=== PATIENT | female | born 1960 | race Caucasian/White ===

== ENCOUNTER → 2017-06-01 | Outpatient (CLI) | payer BC, OTHER ==
[~2017-06-01] MED LIST: ESTR1TAB66; NAPR-243 PO; TRM50T PO
--- NOTE | 2017-06-01 11:30 | Diagnostic Imaging Report ---
INDICATION: Screening mammogram. COMPARISON: 02/20/2016. TECHNIQUE: Digital screening mammography was obtained with CAD and 3D tomosynthesis. FINDINGS: Scattered fibroglandular densities are present. There is no mass or suspicious calcification. IMPRESSION: Stable screening mammogram. No malignancy. ACR BI-RADS Category 1: Negative. Result letter will be mailed to the patient. Note: At least 10% of breast cancer is not imaged by mammography. Dictated by: Dictated on workstation # [id number]
== END ==
LOC: RAD 07:28
PROVIDERS: ATTEND Obstetrics & Gynecology
DX: Z12.31 Encounter for screening mammogram for malignant neoplasm of breast (principal)
CPT/HCPCS: 77067

== ENCOUNTER 2018-05-26 05:46 | Outpatient (CLI) | payer OTHER ==
[~2018-05-26] VITALS: Ht 177.8 cm; Wt 63.5 kg
[2018-05-26] MEDS ORDERED: CETI10TA20 PO (14:33)
[2018-05-26] MEDS ORDERED: ETOD400T PO (14:33)
[2018-05-26] MEDS ORDERED: ESTR1TAB24 PO (14:33)
== END 2018-05-26 14:39 | disposition home or self-care (01) ==
LOC: PREOP 05:46
PROVIDERS: ATTEND Surgery
DX: Z01.818 Encounter for other preprocedural examination (principal)

== ENCOUNTER → 2018-06-21 | Outpatient (CLI) | payer OTHER ==
[~2018-06-21] MED LIST changes: +CETI10TA20 PO; +ESTR1TAB24 PO; +ETOD400T PO
--- NOTE | 2018-06-21 17:41 | Diagnostic Imaging Report ---
INDICATION: Routine screening. Comparison is made with prior mammograms from 06/01/2017 and 02/20/2016. 2-D and 3-D bilateral screening mammography was performed with CAD. The current study was also evaluated with a Computer Aided Detection (CAD) system. FINDINGS: Both breasts are heterogeneously dense, limiting the sensitivity of mammography. The parenchymal pattern is stable. No mass or malignant-appearing microcalcifications are seen. The axillae are unremarkable. IMPRESSION: No mammographic features suspicious for malignancy are identified. ACR BI-RADS Category 1: Negative. Result letter will be mailed to the patient. Note: At least 10% of breast cancer is not imaged by mammography. Dictated by: Dictated on workstation # [id number]
== END ==
LOC: RAD 07:31
PROVIDERS: ATTEND Obstetrics & Gynecology
DX: Z12.31 Encounter for screening mammogram for malignant neoplasm of breast (principal)
CPT/HCPCS: 77067

== ENCOUNTER → 2019-04-26 | Outpatient (CLI) | payer OTHER ==
--- NOTE | 2019-04-26 10:47 | Diagnostic Imaging Report ---
PROCEDURE: CT sinuses without contrast TECHNIQUE: Multiple contiguous axial images were obtained through the sinuses without the use of intravenous contrast. Coronal and sagittal reformations were then performed. Auto Exposure Controls were utilized during the CT exam to meet ALARA standards for radiation dose reduction. INDICATION: Chronic sinusitis, difficulty breathing COMPARISON: There are no prior studies available for comparison FINDINGS: The patient has had a prior bilateral maxillary antrostomy procedure. The sinuses are generally clear. There is no significant mucosal thickening or fluid layering to suggest active disease. Osseous structures are intact. The orbits are symmetrical and within normal limits. The intracranial contents where visualized are unremarkable. IMPRESSION: 1. There is no evidence for active sinus disease. 2. There has been a prior bilateral maxillary antrostomy procedure. Dictated by: Dictated on workstation # [id number]
== END ==
LOC: RAD 07:28
PROVIDERS: ATTEND Otolaryngology Otolaryngology/Facial Plastic Surgery
DX: J32.9 Chronic sinusitis, unspecified (principal); Z98.890 Other specified postprocedural states
CPT/HCPCS: 70486

== ENCOUNTER → 2019-07-07 | Outpatient (CLI) | payer BC, OTHER ==
--- NOTE | 2019-07-07 09:02 | Diagnostic Imaging Report ---
INDICATION: Routine screening. Comparison is made with prior mammogram from 06/21/2018 and 06/01/2017. 2-D and 3-D bilateral screening mammography was performed with CAD. The current study was also evaluated with a Computer Aided Detection (CAD) system. 3-D tomosynthesis was also performed and reviewed. Both breasts remain heterogeneously dense, limiting the sensitivity of mammography. The parenchymal pattern is stable. No mass or malignant appearing microcalcifications are seen. The axillae are unremarkable. IMPRESSION: No mammographic features suspicious for malignancy are identified. ACR BI-RADS Category 1: Negative. Result letter will be mailed to the patient. Note: At least 10% of breast cancer is not imaged by mammography. Dictated by: Dictated on workstation # [id number]
== END ==
LOC: RAD 07:09
PROVIDERS: ATTEND Obstetrics & Gynecology
DX: Z12.31 Encounter for screening mammogram for malignant neoplasm of breast (principal)
CPT/HCPCS: 77067

== ENCOUNTER → 2020-09-17 | Outpatient (CLI) | payer BC ==
[~2020-09-17] MED LIST changes: -CETI10TA20 PO; +CETI10TA49 PO
--- NOTE | 2020-09-17 10:21 | Diagnostic Imaging Report ---
INDICATION: Routine screening. Comparison is made with prior mammogram from 07/07/2019 and 06/21/2018. 2-D and 3-D bilateral screening mammography was performed with CAD. Both breasts remain heterogeneously dense, limiting the sensitivity of mammography. The parenchymal pattern is stable. No mass or malignant appearing microcalcifications are seen. Axillae are unremarkable. IMPRESSION: BI-RADS Category 1 No mammographic features suspicious for malignancy are identified. ACR BI-RADS Category 1: Negative. Result letter will be mailed to the patient. Note: At least 10% of breast cancer is not imaged by mammography. Dictated by: Dictated on workstation # [id number]
== END ==
LOC: RAD 07:45
PROVIDERS: ATTEND Obstetrics & Gynecology
DX: Z12.31 Encounter for screening mammogram for malignant neoplasm of breast (principal)
CPT/HCPCS: 77063; 77067

== ENCOUNTER → 2021-05-21 | Outpatient (CLI) | payer OTHER ==
[~2021-05-21] MED LIST changes: -ETOD400T PO; +ETOD400T3 PO
--- NOTE | 2021-05-21 10:38 | Diagnostic Imaging Report ---
PROCEDURE: CT sinuses without contrast TECHNIQUE: Multiple contiguous axial images were obtained through the sinuses without the use of intravenous contrast. Coronal and sagittal reformations were then performed. Auto Exposure Controls were utilized during the CT exam to meet ALARA standards for radiation dose reduction. INDICATION: Headaches, sinusitis, sinus surgery. COMPARISON: 04/26/2019. FINDINGS: Post operative changes are seen involving the ostiomeatal complexes, ethmoid air cells, and portions of the turbinates. There is some mucosal thickening in the ethmoid air cells at the level of the lamina papyracea. No air-fluid levels are identified. The visualized orbits and intracranial structures are grossly intact. The nasal septum is midline. The visualized frontal, sphenoid, and maxillary sinuses are clear. IMPRESSION: 1. Minimal mucosal thickening in the remaining ethmoid air cells. No air-fluid levels are identified. 2. Not mentioned above are unremarkable appearing mastoid air cells. Dictated by: Dictated on workstation # [id number]
== END ==
LOC: RAD 10:15
PROVIDERS: ATTEND Otolaryngology Otolaryngology/Facial Plastic Surgery
DX: J32.9 Chronic sinusitis, unspecified (principal); Z98.890 Other specified postprocedural states
CPT/HCPCS: 70486

== ENCOUNTER 2022-09-02 07:53 | Day surgery (SDC) | payer OTHER ==
[~2022-09-02] VITALS: Ht 177.8 cm; Wt 83.0 kg
[2022-09-02] VITALS (11 sets, daily range): BP systolic 114–151; BP diastolic 66–85
[2022-09-02] MEDS ORDERED: NS IV 1000 ML 1,000 ML ONE (07:59)
[2022-09-02] MEDS ORDERED: LIDOCAINE 1% INJ 30 ML (XYLOCAINE) VIAL ONE (07:59)
[2022-09-02] MEDS ORDERED: HEParin (CATH LAB) 2,000 ML IV ONE (08:00)
[2022-09-02] MEDS ORDERED: NS IV 1000 ML 1,000 ML IV SCH (08:00)
[2022-09-02 08:24] LABS: HEMATOCRIT 39 % (35-52); HEMOGLOBIN 13.9 g/dL (11.5-16.0); MEAN CORPUSCULAR HEMOGLOBIN 30 pg (25-34); MEAN CORPUSCULAR HGB CONC 35 g/dL (32-36); MEAN CORPUSCULAR VOLUME 84 fL (80-99); MEAN PLATELET VOLUME 8.2 fL (9.0-12.2); PLATELET COUNT 312 10^3/uL (130-400); WHITE BLOOD COUNT 15.8 10^3/uL (4.3-11.0)
[2022-09-02 08:42] LABS: PROTHROMBIN TIME PATIENT 13.6 SEC (12.2-14.7)
[2022-09-02 08:52] LABS: ALBUMIN 3.9 GM/DL (3.2-4.5); BILIRUBIN,TOTAL 0.5 MG/DL (0.1-1.0); CALCIUM 8.9 MG/DL (8.5-10.1); CREATININE SERUM 0.73 MG/DL (0.60-1.30); POTASSIUM 4.1 MMOL/L (3.6-5.0); TOTAL PROTEIN 6.9 GM/DL (6.4-8.2)
[2022-09-02] MEDS ORDERED: SUMA50TA2 PO (09:00)
[2022-09-02] MEDS ORDERED: RT-ALBUINH INH (09:00)
[2022-09-02] MEDS ORDERED: MTP25TSR PO (09:00)
[2022-09-02] MEDS ORDERED: NAPR-915 PO (09:00)
[2022-09-02] MEDS ORDERED: ESTR2TAB4 PO (09:00)
[2022-09-02] MEDS ORDERED: FLUT9.9S NS (09:00)
[2022-09-02] MEDS ORDERED: ASPI-999 PO (09:00)
[2022-09-02] MEDS ORDERED: UBRO100T PO (09:00)
[2022-09-02] MEDS ORDERED: diphenhydrAMINE 50 MG/ML INJ (BENADRYL) ONE (10:32)
[2022-09-02] MEDS ORDERED: fentaNYL INJ 100 MCG/2 ML AMP ONE ×2 (10:33→14:21)
[2022-09-02] MEDS ORDERED: MIDAZOLAM 5 MG/5 ML (VERSED) VIAL ONE (10:33)
[2022-09-02] MEDS ORDERED: HEParin 1000 UNIT/ML (10ML VIAL) FOR BOLUS ONE (11:30)
[2022-09-02] MEDS ORDERED: morphine INJ 4 MG/ML 1 ML (VIAL/SYRINGE) ONE (11:47)
[2022-09-02] MEDS ORDERED: EPTIFIBATIDE BOLUS 10 ML IV ONE ×2 (11:49→11:52)
[2022-09-02] MEDS ORDERED: NITRO DRIP 25000 MCG/D5W 250 ML IV ONE (11:52)
--- NOTE | 2022-09-02 12:12 | Cardiac Procedure Note-CS/ASA ---
Pre-Procedure Note Pre-Op Procedure Note Date of Available H&P: Aug 25, 2022 Date H&P Reviewed: Sep 02, 2022 Time H&P Reviewed: 10:30 History & Physical: H&P Reviewed, No changes noted Conscious Sedation Pre-Proced ASA Score 3 For ASA 3 and 4: Consider anesthesia and medical clearance. Also, for patients with a history of failed moderate sedation consider anesthesia. Airway Lungs Heart ASA score ASA 1: a normal healthy patient ASA 2: a patient with a mild systemic disease (mid diabetes, controlled hypertension, obesity ASA 3: a patient with a severe systemic disease that limits activity (angina, COPD, prior Myocardial infarction) ASA 4: a patient with an incapacitating disease that is a constant threat to life (CHF, renal failure) ASA 5: a moribund patient not expected to survive 24 hrs. (ruptured aneurysm) ASA 6: a declared brain- patient whose organs are being harvested. For emergent operations, add the letter E after the classification Mallampati Classification Grade 2 Sedation Plan Analgesia, Amnesia, Plan communicated to team members The patient is an appropriate candidate to undergo the planned procedure, sedation, and anesthesia. The patient immediately re-assessed prior to indication. ALLYSON VALDOVINOS MD FACP FAC CCDS Sep 02, 2022 12:12
[2022-09-02] MEDS ORDERED: CLOPIDOGREL 300 MG (PLAVIX) TABLET PO ONE (12:17)
[2022-09-02] MEDS ORDERED: ASPIRIN 81 MG CHEW (CHILDREN'S ASA) ONE (12:17)
[2022-09-02] MEDS ORDERED: oxyCODONE/APAP 5/325MG (PERCOCET 5) TABLET PO PRN (14:15)
[2022-09-02] MEDS ORDERED: NON-FORMULARY MEDICATION 1 EA EA (Ubrogepant (Ubrelvy) 100 MG) PO PRN (14:15)
[2022-09-02] MEDS ORDERED: ACETAMINOPHEN 325 MG TABLET PO PRN (14:15)
[2022-09-02] MEDS ORDERED: SUMAtriptan 50 MG (IMITREX) TAB PO PRN (14:15)
[2022-09-02] MEDS ORDERED: RT-ALBUTEROL SULF 2.5 MG/3 ML PRE-MIX VIAL INH PRN (14:15)
[2022-09-02] MEDS ORDERED: TEMAZEPAM 7.5 MG CAP (RESTORIL) PO PRN (14:15)
[2022-09-02] MEDS ORDERED: PATIENT MAY USE OWN MEDS, ALL PO SCH (14:15)
[2022-09-02] MEDS ORDERED: ATROPINE INJ 0.4 MG/ML SDV ONE (14:21)
[2022-09-02] MEDS: NS IV 1000 ML 1,000 ML IV SCH (15:28)
--- NOTE | 2022-09-02 15:49 | CARDIAC CATHETERIZATION ---
DATE OF SERVICE: 09/02/2022 CARDIAC CATHETERIZATION AND CORONARY INTERVENTION REPORT INDICATION: The patient is a 61-year-old lady who has been experiencing symptoms of exertional angina. The symptoms are of new onset and have been progressive. Cardiac catheterization was carried out today after having obtained informed consent for cardiac catheterization, possible ad hoc coronary intervention. DESCRIPTION OF PROCEDURE: She was brought to the cardiac catheterization laboratory in a fasting state. Right groin was prepped and draped in the usual sterile fashion. She had been premedicated with steroids because of her history of allergy to iodine. We used the modified Seldinger technique to advance a 5-Montenegrin sheath in the right femoral artery. We used 5-Montenegrin JL4 catheter for left coronary angiography and a 5-Montenegrin JR4 catheter for right coronary angiography. We used 5-Montenegrin pigtail catheter, left heart catheterization, left ventricular angiography. Some haziness was seen in the proximal and mid left anterior descending. We decided to proceed with IFR measurement. IFR measurement in the left anterior descending: We used a 5-Montenegrin JL4 catheter and advanced a pressure wire across the lesion. Considerable pressure gradient was being noticed, but to be certain that the gradient is not artifactual, we removed the pressure wire and the catheter and exchanged the sheath over a wire for a 6-Montenegrin sheath and used a 6-Montenegrin JL4 guide catheter with side holes to engage the left coronary and again advanced the pressure wire across the lesion. IFR was being measured at 0.4, indicating that there was significant obstruction to flow. We then proceeded with percutaneous intervention to the left anterior descending. Percutaneous intervention to the left anterior descending: The left anterior descending was exhibiting IFR of approximately 0.4 in the proximal left anterior descending. We kept the same wire. We already had a 6-Montenegrin JL3.5 guide catheter with side holes that was engaging in the right coronary. Over the pressure wire, we advanced a Skypoint 3.0 x 23 mm stent. This was carefully positioned to cover the entire lesion in the ostial and proximal left anterior descending. The stent was carefully positioned so as to not impinge the ostium of the left circumflex. The stent was deployed at 12 atmospheres. Subsequent angiography revealed 0% residual stenosis. The stenosis before stenting was more than 90%. Following stenting, there was no significant residual. Following stenting, her chest pain resolved. Flow throughout the vessel was normal. Angioplasty equipment was removed. The sheath was sutured in place and the patient was transferred to the floor for manual sheath removal. The patient did receive 5000 units of intravenous heparin during the interventional procedure. She also received a double bolus of Integrilin. At the end of the procedure, she received oral Plavix (600 mg) and oral aspirin (324 mg). CORONARY ANGIOGRAPHY: Left main coronary artery does not exhibit significant disease. Left anterior descending artery had haziness in its proximal portion. IFR was markedly positive across this lesion. The stenosis was estimated to be more than 90% in the proximal and ostial portion of the left anterior descending. Following stenting with a Skypoint 3.0 x 23 mm stent, there is no significant residual stenosis and flow throughout the vessel is normal (AURORA 3). The first diagonal branch of the left anterior descending artery is jailed by the stented segment of the left anterior descending. This is a small caliber vessel. It had approximately 70% stenosis even before stenting in the left anterior descending. Following stenting in the left anterior descending, the diagonal branch has approximately 70-80% ostial stenosis. As stated, this is a small caliber vessel. The distal left anterior descending artery has multiple lesions of up to approximately 30-40%. The left circumflex artery has approximately 40% ostial and proximal stenosis. The right coronary artery does not exhibit significant stenoses. Right coronary artery is dominant. LEFT VENTRICULAR ANGIOGRAPHY: Left ventricular angiography was carried out in the DURAND projection. Global systolic motion normal. No distinct regional wall motion abnormalities are seen in this view. Ejection fraction is approximately 65%. CONCLUSIONS: 1. Coronary artery disease, primarily consisting of more than 90% stenosis in the ostial and proximal left anterior descending that was successfully stented with Skypoint 3.0 x 23 mm stent. Small caliber first diagonal branch has 70-80% ostial stenosis. The distal left anterior descending artery has mild to moderate diffuse plaque. Left circumflex artery has mild to moderate ostial and proximal plaque. Right coronary artery is dominant, does not exhibit significant disease. 2. Normal global left systolic function, ejection fraction approximately 65%. 3. Mildly elevated left ventricular end-diastolic pressure (14 mmHg). DISCUSSION AND RECOMMENDATIONS: Dual dual antiplatelet therapy has been initiated. Statin, beta mally therapy will be given as tolerated. Job ID: [id number] DocumentID: [id number] Dictated Date: 09/02/2022 12:20:51 Legal Writing Professor Date: 09/02/2022 15:47:00 Dictated By: ALLYSON VALDOVINOS MD; RIVERA; FACP; FACC;
[2022-09-02] MEDS ORDERED: NON-FORMULARY MEDICATION 1 EA EA (Fluticasone Propionate (Flonase Allergy Relief) 2 SPRAY) NS SCH (21:00)
[2022-09-02] MEDS ORDERED: NITROGLYCERIN 0.4 MG SL TABS BTL 25'S SL PRN (22:00)
[2022-09-02] MEDS: FLUTICASONE NASAL SPRAY (FLONASE) 16 GM BTL NS SCH (23:04)
[2022-09-03] VITALS: BP 108/59
[2022-09-03] MEDS: NS IV 1000 ML 1,000 ML IV SCH (02:31)
[2022-09-03 04:00] VITALS: BP 119/59
[2022-09-03 05:32] LABS: BASOPHILS # (AUTO) 0.1 10^3/uL (0.0-0.1); BASOPHILS % (AUTO) 0 % (0-10); EOSINOPHILS % (AUTO) 0 % (0-10); HEMATOCRIT 33 % (35-52); HEMOGLOBIN 11.4 g/dL (11.5-16.0); LYMPHOCYTES # (AUTO) 2.1 10^3/uL (1.0-4.0); LYMPHOCYTES % (AUTO) 18 % (12-44); MEAN CORPUSCULAR HEMOGLOBIN 29 pg (25-34); MEAN CORPUSCULAR HGB CONC 34 g/dL (32-36); MEAN CORPUSCULAR VOLUME 85 fL (80-99); MEAN PLATELET VOLUME 8.3 fL (9.0-12.2); MONOCYTES # (AUTO) 0.7 10^3/uL (0.0-1.0); MONOCYTES % (AUTO) 6 % (0-12); NEUTROPHILS # (AUTO) 8.9 10^3/uL (1.8-7.8); NEUTROPHILS % (AUTO) 75 % (42-75); PLATELET COUNT 234 10^3/uL (130-400); WHITE BLOOD COUNT 11.9 10^3/uL (4.3-11.0)
[2022-09-03 05:54] LABS: CALCIUM 7.9 MG/DL (8.5-10.1); CREATININE SERUM 0.61 MG/DL (0.60-1.30); MAGNESIUM 1.8 MG/DL (1.6-2.4); POTASSIUM 3.8 MMOL/L (3.6-5.0)
[2022-09-03 07:00] VITALS: BP 142/78
[2022-09-03 08:00] VITALS: BP 142/78
--- NOTE | 2022-09-03 08:08 | Progress Note - Cardiology ---
Cardiology SOAP Progress Note Objective: I&O/Vital Signs 09/02/22 09/02/22 09/03/22 09/03/22 21:00 21:00 00:00 00:34 Temp 36.3 Pulse 80 89 Resp 21 18 B/P (MAP) 151/80 (103) 108/59 (75) Pulse Ox 98 97 96 O2 Delivery Room Air Room Air Room Air 09/03/22 09/03/22 09/03/22 09/03/22 01:00 03:46 04:00 07:00 Temp 36.3 Pulse 80 82 82 Resp 23 B/P (MAP) 119/59 (79) Pulse Ox 97 O2 Delivery Room Air 09/03/22 00:00 Intake Total 1820 ml Output Total 300 ml Balance 1520 ml Weight (Pounds): 140 Weight (Ounces): 0.0 Weight (Calculated Kilograms): 63.311187 Results/Procedures: Labs Laboratory Tests 09/02/22 08:14: White Blood Count 15.8H, Red Blood Count 4.68, Hemoglobin 13.9, Hematocrit 39, Mean Corpuscular Volume 84, Mean Corpuscular Hemoglobin 30, Mean Corpuscular Hemoglobin Concent 35, Red Cell Distribution Width 12.4, Platelet Count 312, Mean Platelet Volume 8.2L, Prothrombin Time 13.6, INR Comment 1.0, Activated Partial Thromboplast Time 29, Sodium Level 137, Potassium Level 4.1, Chloride Level 105, Carbon Dioxide Level 18L, Anion Gap 14, Blood Urea Nitrogen 13, Creatinine 0.73, Estimat Glomerular Filtration Rate 95, BUN/Creatinine Ratio 18, Glucose Level 122H, Calcium Level 8.9, Corrected Calcium 9.0, Total Bilirubin 0.5, Aspartate Amino Transf (AST/SGOT) 12, Alanine Aminotransferase (ALT/SGPT) 11, Alkaline Phosphatase 52, Total Protein 6.9, Albumin 3.9, Triglycerides Level 110, Cholesterol Level 231H, LDL Cholesterol Direct 145H, VLDL Cholesterol 22, HDL Cholesterol 70H 09/03/22 05:15: White Blood Count 11.9H, Red Blood Count 3.89, Hemoglobin 11.4L, Hematocrit 33L, Mean Corpuscular Volume 85, Mean Corpuscular Hemoglobin 29, Mean Corpuscular Hemoglobin Concent 34, Red Cell Distribution Width 12.8, Platelet Count 234, Mean Platelet Volume 8.3L, Sodium Level 139, Potassium Level 3.8, Chloride Level 109H, Carbon Dioxide Level 20L, Anion Gap 10, Blood Urea Nitrogen 10, Creatinine 0.61, Estimat Glomerular Filtration Rate 103, BUN/Creatinine Ratio 16, Glucose Level 101, Calcium Level 7.9L, Immature Granulocyte % (Auto) 0, Neutrophils (%) (Auto) 75, Lymphocytes (%) (Auto) 18, Monocytes (%) (Auto) 6, Eosinophils (%) (Auto) 0, Basophils (%) (Auto) 0, Neutrophils # (Auto) 8.9H, Lymphocytes # (Auto) 2.1, Monocytes # (Auto) 0.7, Eosinophils # (Auto) 0.0, Basophils # (Auto) 0.1, Immature Granulocyte # (Auto) 0.0, Magnesium Level 1.8, Thyroid Stimulating Hormone (TSH) 1.05 Microbiology 09/02/22 MRSA Screen - Final, Complete MRSA not isolated A/P: Assessment: CAD: - Cardiac cath of 09-02-2022: primarily consisting of more than 90% stenosis in the ostial and proximal left anterior descending that was successfully stented with Skypoint 3.0 x 23 mm stent. Small caliber first diagonal branch has 70-80% ostial stenosis. The distal left anterior descending artery has mild to moderate diffuse plaque. Left circumflex artery has mild to moderate ostial and proximal plaque. Right coronary artery is dominant, does not exhibit significant disease. Normal global left systolic function, ejection fraction approximately 65%. Mildly elevated left ventricular end-diastolic pressure (14 mmHg). Hypertension Quit smoking in or around 2004 BALJIT RAIMREZ Sep 03, 2022 08:08
[2022-09-03] MEDS ORDERED: CLOP75TA28 PO (08:09)
[2022-09-03] MEDS ORDERED: ATOR40TA PO (08:09)
--- NOTE | 2022-09-03 08:10 | Discharge Inst-Cardiology ---
Discharge Inst-Cardiac Discharge Medications New Medications: Atorvastatin Calcium (Lipitor) 40 Mg Tablet 40 MG PO HS, #90 TAB 3 Refills Clopidogrel Bisulfate (Clopidogrel) 75 Mg Tablet 75 MG PO DAILY, #90 TAB 3 Refills Continued Medications: Albuterol Sulfate (Ventolin Hfa) 1 Puff Puff 1 PUFF INH Q4H PRN for SHORTNESS OF BREATH, EA Aspirin (Aspirin) 81 Mg Tab.chew 81 MG PO DAILY, TAB Cetirizine HCl (Zyrtec) 10 Mg Tablet 10 MG PO DAILY, TAB Estradiol (Estrace Tablet) 2 Mg Tablet 4 MG PO DAILY, TAB TAKES 2 2MG TABLETS Fluticasone Propionate (Flonase Allergy Relief) 50 Mcg/Actuation [place].susp 2 SPRAY NS BID, EACH Metoprolol Succinate (Metoprolol Succinate) 25 Mg Tab.er.24h 25 MG PO DAILY, TAB Sumatriptan Succinate (Sumatriptan Succinate) 50 Mg Tablet 50 MG PO Q 4-6H PRN for MIGRAINE, TAB Ubrogepant (Ubrelvy) 100 Mg Tablet 100 MG PO DAILY PRN for MIGRAINE, TAB Discontinued Medications: Naproxen (Naproxen) 500 Mg Tablet 500 MG PO Q12H PRN for MIGRAINE, TAB New, Converted or Re-Newed RX: Transmitted to Pharmacy Patient Instructions Patient Instructions: Please schedule follow up appointment to see Dr. Duff in 1-2 weeks BALJIT RAMIREZ Sep 03, 2022 08:10
[2022-09-03] MEDS ORDERED: ASPIRIN 81 MG CHEW (CHILDREN'S ASA) PO SCH ×2 (09:00→10:00)
[2022-09-03] MEDS ORDERED: ESTRADIOL 4 MG PO SCH (09:00)
[2022-09-03] MEDS ORDERED: CLOPIDOGREL 75 MG (PLAVIX) TABLET PO SCH (09:00)
[2022-09-03] MEDS: FLUTICASONE NASAL SPRAY (FLONASE) 16 GM BTL NS SCH (09:00)
[2022-09-03] MEDS ORDERED: ESTRADIOL 1 MG TAB (ESTRACE) PO SCH (09:00)
[2022-09-03] MEDS ORDERED: NON-FORMULARY MEDICATION 1 EA EA (Cetirizine HCl (Zyrtec) 10 MG) PO SCH (09:00)
[2022-09-03] MEDS ORDERED: LORATADINE (CLARITIN) 10 MG TAB PO SCH (09:00)
[2022-09-03] MEDS ORDERED: FAMOTIDINE 20 MG (PEPCID) TABLET PO NR (10:00)
[2022-09-03] MEDS ORDERED: ESTRADIOL 2 MG PO SCH (10:00)
[2022-09-03] MEDS ORDERED: meTOproloL SUCCINATE 50 MG (TOPROL XL) TAB PO NR (10:00)
[2022-09-03] MEDS ORDERED: METOPROLOL SUCCINATE 25 MG PO SCH (10:54)
[2022-09-03 12:00] VITALS: BP 137/95
--- NOTE | 2022-09-03 13:17 | Progress Note - Cardiology ---
Cardiology SOAP Progress Note Subjective: One or two episodes of bilateral forearm discomfort last night No chest discomfort No shortness of breath, palp, syncope, leg swelling or groin discomfort No n/v/d Does note some epigastric discomfort since being on post-PCI meds Objective: I&O/Vital Signs 09/03/22 09/03/22 09/03/22 09/03/22 03:46 04:00 07:00 07:00 Temp 36.3 Pulse 82 74 82 Resp 23 30 B/P (MAP) 119/59 (79) 142/78 (99) Pulse Ox 97 98 O2 Delivery Room Air Room Air 09/03/22 09/03/22 08:00 12:00 Temp 36.4 36.2 Pulse 80 73 Resp 18 16 B/P (MAP) 142/78 (99) 137/95 (109) Pulse Ox 97 95 O2 Delivery Room Air Room Air 09/03/22 00:00 Intake Total 1820 ml Output Total 300 ml Balance 1520 ml Weight (Pounds): 140 Weight (Ounces): 0.0 Weight (Calculated Kilograms): 63.092693 Condition: DP/PT pulses palpable Bruising: mild bruising Constitutional: AAO x 3, well-developed, well-nourished Respiratory: No accessory muscle use, No rales; other (good, bilat air entry) Cardiovascular: regular rate-rhythm, S1 and S2, systolic murmur (soft ASHLEE at card base) Gastrointestional: No tender; soft; No guarding, No rebound; audible bowel sounds Extremities: No clubbing, No cyanosis, No significant edema Neurologic/Psychiatric: oriented x 3, other (moves all limbs equally) Skin: No rash on exposed areas, No ulcerations on exposed areas Results/Procedures: Labs Laboratory Tests 09/03/22 05:15: White Blood Count 11.9H, Red Blood Count 3.89, Hemoglobin 11.4L, Hematocrit 33L, Mean Corpuscular Volume 85, Mean Corpuscular Hemoglobin 29, Mean Corpuscular Hemoglobin Concent 34, Red Cell Distribution Width 12.8, Platelet Count 234, Mean Platelet Volume 8.3L, Immature Granulocyte % (Auto) 0, Neutrophils (%) (Auto) 75, Lymphocytes (%) (Auto) 18, Monocytes (%) (Auto) 6, Eosinophils (%) (Auto) 0, Basophils (%) (Auto) 0, Neutrophils # (Auto) 8.9H, Lymphocytes # (Auto) 2.1, Monocytes # (Auto) 0.7, Eosinophils # (Auto) 0.0, Basophils # (Auto) 0.1, Immature Granulocyte # (Auto) 0.0, Sodium Level 139, Potassium Level 3.8, Chloride Level 109H, Carbon Dioxide Level 20L, Anion Gap 10, Blood Urea Nitrogen 10, Creatinine 0.61, Estimat Glomerular Filtration Rate 103, BUN/Creatinine Ratio 16, Glucose Level 101, Calcium Level 7.9L, Magnesium Level 1.8, Thyroid Stimulating Hormone (TSH) 1.05 Microbiology 09/02/22 MRSA Screen - Final, Complete MRSA not isolated Laboratory Tests 09/02/22 08:14 09/03/22 05:15 A/P: Assessment: CAD: - Cardiac cath of 09-02-2022: primarily consisting of more than 90% stenosis in the ostial and proximal left anterior descending that was successfully stented with Skypoint 3.0 x 23 mm stent. Small caliber first diagonal branch has 70-80% ostial stenosis. The distal left anterior descending artery has mild to moderate diffuse plaque. Left circumflex artery has mild to moderate ostial and proximal plaque. Right coronary artery is dominant, does not exhibit signif icant disease. Normal global left systolic function, ejection fraction approximately 65%. Mildly elevated left ventricular end-diastolic pressure (14 mmHg). Hypertension Quit smoking in or around 2004 Plan: * Given two episodes of bilateral forearm discomfort (w/o any objective signs of ischemia) we recommend continuing hosp for another day * Increase beta-mally * Add famotidine (given some symptoms suggestive of GERD) * Transfer to stepdown * Keep tele ALLYSON VALDOVINOS MD FACP FAC CCDS Sep 03, 2022 13:17
[2022-09-03 16:50] VITALS: BP 124/67
[2022-09-03] MEDS ORDERED: FAMOTIDINE 20 MG (PEPCID) TABLET PO SCH (21:00)
== END 2022-09-03 19:05 | disposition home or self-care (01) ==
LOC: CATH 07:53 → ICU 12:34 → CSD 09-03 10:20 → CATH 09-03 19:05
PROVIDERS: ATTEND Internal Medicine Cardiovascular Disease
DX: I25.119 Atherosclerotic heart disease of native coronary artery with unspecified angina pectoris (principal); I10 Essential (primary) hypertension; Z87.891 Personal history of nicotine dependence
CPT/HCPCS: 80048; 80053; 80061; 83735; 84443; 85025; 85027; 85610; 85730; 87081; 93005 ×2; 93458; 93571; 94760; C1769 ×2; C1874; C1894 ×2; C9600; 36415

== ENCOUNTER → 2022-09-25 | Outpatient (CLI) | payer OTHER ==
[~2022-09-25] MED LIST changes: +ASPI-999 PO; +ATOR40TA PO; +CLOP75TA28 PO; +ESTR2TAB4 PO; +FLUT9.9S NS; +MTP25TSR PO; +NAPR-915 PO; +RT-ALBUINH INH; +RT-ALBUTEROL SULF 2.5 MG/3 ML PRE-MIX VIAL INH ONE; +SUMA50TA2 PO; +UBRO100T PO
== END ==
LOC: RT 15:01
PROVIDERS: ATTEND Pediatrics
DX: Z13.83 Encounter for screening for respiratory disorder NEC (principal); R06.09 Other forms of dyspnea
CPT/HCPCS: 94060; 94726; 94729

== ENCOUNTER → 2022-10-21 | Outpatient (CLI) | payer OTHER ==
[~2022-10-21] VITALS: Ht 177 cm; Wt 81.0 kg
[~2022-10-21] MED LIST changes: +CATHETER FLUSH 10 ML SYR IVP PRN; -RT-ALBUTEROL SULF 2.5 MG/3 ML PRE-MIX VIAL INH ONE
[2022-10-21 09:32] VITALS: BP 134/78
--- NOTE | 2022-10-21 19:12 | STRESS TEST ---
DATE OF SERVICE: 10/21/2022 RESTING AND POST EXERCISE TECHNETIUM-99M TETROFOSMIN SPECT CT IMAGING ORDERING PHYSICIAN: Dr. Eliseo Duff. CLINICAL DIAGNOSIS: Chest discomfort, coronary artery disease. Baseline images were carried out after injection of 10.63 mCi of technetium-99m tetrofosmin. This is followed by exercise on a treadmill. Vito protocol was employed. Heart rate response to exercise was normal. Blood pressure response to exercise was hypertensive. She exercised for a total of 8 minutes and 49 seconds in the Vito protocol. 28.6 mCi Technetium-99m Tetrofosmin were injected after she had indicated that she was getting tired. Subsequently, she exercised for well over a minute. She attained 83% of maximum predicted heart rate. No arrhythmia was seen. The test was stopped on account of generalized fatigue and poor stamina. She did not report chest pain. Review of images at rest and following stress does not indicate any significant perfusion defects consistent with myocardial ischemia or infarction. Gated images showed normal global left ventricular systolic function with normal regional wall motion. Left ventricular ejection fraction is calculated to be 67%. CONCLUSIONS: 1. No evidence of any significant myocardial ischemia or infarction. 2. Normal regional wall motion. 3. Normal global left ventricular systolic function with a calculated ejection fraction of 67%. Job ID: [id number] DocumentID: [id number] Dictated Date: 10/21/2022 15:40:32 Well Tester Date: 10/21/2022 19:11:00 Dictated By: ELISEO DUFF MD; RIVERA; FACP; FACC;
== END ==
LOC: CARD 07:15
PROVIDERS: ATTEND Internal Medicine Cardiovascular Disease
DX: I25.10 Atherosclerotic heart disease of native coronary artery without angina pectoris (principal)
CPT/HCPCS: 78452; 93017; A9502

== ENCOUNTER → 2022-10-29 | Outpatient (CLI) | payer OTHER ==
[~2022-10-29] MED LIST changes: -CATHETER FLUSH 10 ML SYR IVP PRN
--- NOTE | 2022-10-29 08:59 | Diagnostic Imaging Report ---
EXAMINATION: CT chest without contrast (high resolution) TECHNIQUE: Prone and supine non-contrast high resolution CT images of the chest were obtained in inspiration and expiration. All CT scans use one or more of the following dose optimizing techniques: automated exposure control, MA and/or KvP adjustment based on patient size and exam type or iterative reconstruction. HISTORY: DYSPNEA ON EXERTION COMPARISON: None available. FINDINGS: There is moderate to severe emphysema. No fibrosis. No honeycombing. No bronchiectasis. No groundglass. There is a calcified pleural plaque in the left hemithorax. There is diffuse air trapping. There is no edema or pneumonia. No pleural effusion. No pneumothorax. No suspicious nodules. There is no axillary or supraclavicular lymphadenopathy. There is no mediastinal lymphadenopathy. Heart size is normal. There are mild coronary artery calcifications. No pericardial effusion. Aorta is normal in caliber. Limited views of the upper abdomen are unremarkable. There are no suspicious osseus lesions. IMPRESSION: 1. Moderate severe emphysema with diffuse shopping. No interstitial fibrosis. Dictated by: Dictated on workstation # [id number]
== END ==
LOC: RAD 07:22
PROVIDERS: ATTEND Pediatrics
DX: J43.9 Emphysema, unspecified (principal)
CPT/HCPCS: 71250

== ENCOUNTER 2022-12-08 10:14 | Outpatient (RCR) | payer OTHER | END 2022-12-09 | disposition home or self-care (01) | LOC: CR 10:14 | PROVIDERS: ATTEND Internal Medicine Cardiovascular Disease | DX: Z29.8 Encounter for other specified prophylactic measures (principal); Z95.5 Presence of coronary angioplasty implant and graft | CPT/HCPCS: 93798 ==

== ENCOUNTER 2022-12-31 10:12 | Outpatient (RCR) | payer OTHER | END 2023-01-09 | disposition home or self-care (01) | LOC: CR 10:12 | PROVIDERS: ATTEND Internal Medicine Cardiovascular Disease | DX: Z29.8 Encounter for other specified prophylactic measures (principal); Z95.5 Presence of coronary angioplasty implant and graft | CPT/HCPCS: 93798 ==